=== PATIENT | male | born 1960 | race Caucasian/White ===

== ENCOUNTER 2016-11-18 09:39 | Emergency (ER) | payer BC ==
[~2016-11-18] VITALS: Ht 165.1 cm; Wt 83.3 kg
[2016-11-18 09:47] VITALS: TEMP 36.8; Ht 165.1 cm; Wt 83.3 kg
[2016-11-18 10:03] VITALS: O2SAT 97
[2016-11-18] MEDS ORDERED: RANI-316 PO (10:13)
[2016-11-18] MEDS ORDERED: ASPI-391 PO (10:13)
[2016-11-18] MEDS ORDERED: ACETAMINOPHEN 500 MG TAB PO STA (10:26)
[2016-11-18] MEDS ORDERED: CLONIDINE HCL 0.1 MG TAB PO ONE ×2 (10:30→11:30)
[2016-11-18 10:35] LABS: MEAN CELL VOLUME 92.3 fL (80-100); MEAN CORPUSCULAR HEMOGLOBIN 31.3 pg (25-34); MEAN CORPUSCULAR HGB CONC 33.9 g/dl (32-36); MEAN PLATELET VOLUME 9.6 fL (7.4-10.4); PLATELET COUNT 124 K/uL (130-400); RED BLOOD COUNT 5.31 M/uL (4.7-6.1); WHITE BLOOD COUNT 4.89 K/uL (4.8-10.8)
[2016-11-18 10:43] LABS: BLOOD UREA NITROGEN 22 mg/dl (7-18); BUN/CREATININE RATIO 19.8 (10-20); CALCIUM 8.8 mg/dl (8.5-10.1); CARBON DIOXIDE 25 mmol/L (21-32); CHLORIDE 105 mmol/L (98-107); GLUCOSE 115 mg/dl (70-99); POTASSIUM 4.2 mmol/L (3.5-5.1); SODIUM 137 mmol/L (136-145)
--- NOTE | 2016-11-18 11:22 | DIAGNOSTIC IMAGING REPORT ---
CHEST 2 VIEWS ROUTINE CLINICAL HISTORY: Atypical chest pain. Hypertension. COMPARISON STUDY: No previous studies for comparison. FINDINGS: The cardiac and mediastinal contours are normal. There is no evidence of focal pulmonary consolidation. There is no evidence of failure. No pleural effusions are visualized.[ There is minor left basilar atelectasis IMPRESSION: No active disease in the chest. Electronically signed by: Julian Sanchez M.D. 11/18/2016 11:20 AM Dictated Date/Time: 11/18/2016 11:20 AM
--- NOTE | 2016-11-18 11:27 | EMERGENCY ROOM VISIT NOTE ---
History Report prepared by Martin: Marlene Zavaleta Under the Supervision of: Dr. Freddy David M.D. First contact with patient: 10:20 Chief Complaint: HYPERTENSION Stated Complaint: HIGH BLOOD PRESSURE, HERNIA History of Present Illness The patient is a 56 year old male who presents to the Emergency Room with complaints of constant hypertension beginning [employer]. The patient noticed a right- sided inguinal hernia last week. Today he had a pre-op evaluation for his hernia and in the office his blood pressure was 240/133. He was sent to the ED for further evaluation. He is currently complaining of nausea and a headache located in the front of his head. He rates his pain as a 7/10 and states that he often has these headaches. He denies dizziness and lightheadedness. The patient states that prior to his hernia, he had not been to see a doctor in 15 years. states that years ago he was told that he had high blood pressure but it was never treated and he has not followed-up with anyone regarding this. Source of History: patient, spouse/significant other Onset: [employer] Position: other (global) Symptom Intensity: BP 240/133 Quality: other (hypertensive) Timing: constant Associated Symptoms: + headache, + nausea Review of Systems All systems have been listed, reviewed, and are negative other than those previously mentioned. Please see Additional Medical History Sheet. Past Medical & Surgical Medical Problems: (1) Inguinal hernia, right (2) Pilonidal cyst Surgical Problems: (1) History of surgical removal of pilonidal cyst Family History Cancer Heart disease Hypertension Social History Smoking Status: Current Some Day Smoker Alcohol Use: occasionally Marital Status: Housing Status: lives with significant other Occupation Status: employed Current/Historical Medications Scheduled Xcmogcy-Cxhcdwxswexkc-Nqwqtakp (Excedrin Extra Strength), 1 TAB PO PER PACKAGE DIRECTIO Clonidine Hcl (Catapres), 1 TAB PO BID Ranitidine HCl (Acid Teacher Of The Visually Impaired), 1 TAB PO DAILY Allergies Coded Allergies: Amoxicillin (Unverified Adverse Reaction, Intermediate, RASH, 11/18/16) Physical Exam Vital Signs Date Time Temp Pulse Resp B/P (MAP) Pulse Ox O2 Delivery O2 Flow Rate FiO2 11/18/16 13:21 73 11/18/16 13:18 75 18 138/95 95 Room Air 11/18/16 12:06 78 18 141/97 95 Room Air 11/18/16 11:58 70 18 150/108 95 Room Air 11/18/16 11:26 74 18 189/122 96 Room Air 11/18/16 10:49 70 18 180/122 95 Room Air 11/18/16 10:03 75 20 185/120 96 Room Air 11/18/16 10:03 97 Room Air 11/18/16 09:56 74 11/18/16 09:47 36.8 79 18 215/126 97 Room Air Physical Exam GENERAL: Patient awake, alert, oriented x 3. Patient follows commands. Patient does not appear toxic. Patient is adequately hydrated and well- nourished. SKIN: No erythema, pallor, cyanosis or rash HEENT: Normal head, pupils equal, reactive to light and accommodation. Oral cavity and posterior pharynx appear normal. Neck: Without adenopathy, no neck vein distention. LUNGS: Clear to auscultation. No wheezes, no rales, no rhonchi. HEART: No murmurs. No gallops. No rubs ABDOMEN: He has a right inguinal hernia. No rebound, no hepatomegaly or splenomegaly. EXTREMITIES: No signs of trauma. No pedal or pretibial edema. No calf or thigh tenderness. NEUROLOGIC: Cranial nerves II-XII within normal limits. No gross motor sensory function deficits. Medical Decision & Procedures ER Provider Diagnostic Interpretation: Radiology results as stated below per my review and radiologist interpretation: CHEST 2 VIEWS ROUTINE CLINICAL HISTORY: Atypical chest pain. Hypertension. COMPARISON STUDY: No previous studies for comparison. FINDINGS: The cardiac and mediastinal contours are normal. There is no evidence of focal pulmonary consolidation. There is no evidence of failure. No pleural effusions are visualized.[ There is minor left basilar atelectasis IMPRESSION: No active disease in the chest. Electronically signed by: Julian Sanchez M.D. 11/18/2016 11:20 AM Dictated Date/Time: 11/18/2016 11:20 AM Laboratory Results 11/18/16 10:01 11/18/16 10:01 Test 11/18/16 10:01 Red Blood Count 5.31 M/uL (4.7-6.1) Mean Corpuscular Volume 92.3 fL (80-100) Mean Corpuscular Hemoglobin 31.3 pg (25-34) Mean Corpuscular Hemoglobin Concent 33.9 g/dl (32-36) RDW Standard Deviation 42.3 fL (36.4-46.3) RDW Coefficient of Variation 12.6 % (11.5-14.5) Mean Platelet Volume 9.6 fL (7.4-10.4) Anion Gap 7.0 mmol/L (3-11) Est Creatinine Clear Calc Drug Dose 73.6 ml/min Estimated GFR () 85.9 Estimated GFR (Non- 74.1 BUN/Creatinine Ratio 19.8 (10-20) Calcium Level 8.8 mg/dl (8.5-10.1) Troponin I < 0.015 ng/ml (0-0.045) Laboratory results as stated above per my review. Medications Administered Medications (Trade) Dose Ordered Sig/Karoline Route Start Time Stop Time Status Last Admin Dose Admin Clonidine HCl (Catapres Tab) 0.1 mg NOW ONCE PO 11/18/16 10:30 11/18/16 10:31 DC 11/18/16 10:51 0.1 MG Acetaminophen (Tylenol Tab) 1,000 mg NOW STAT PO 11/18/16 10:26 11/18/16 10:28 DC 11/18/16 10:50 1,000 MG Clonidine HCl (Catapres Tab) 0.1 mg NOW ONCE PO 11/18/16 11:30 11/18/16 11:31 DC 11/18/16 11:36 0.1 MG ECG Indication: other (hypertension) Rate (beats per minute): 73 Rhythm: normal sinus Findings: no acute ischemic change, no ectopy ED Course 1020: Past medical records reviewed. The patient was evaluated in room A10. A complete history and physical examination was performed. 1026: Tylenol tab 1000 mg PO 1030: Clonidine HCl 0.1 mg PO 1124: I reassessed the patient and his blood pressure has improved. 1130: Clonidine HCl 0.1 mg PO 1304: I reassessed the patient at this time. He is feeling better and resting comfortably. I discussed the results and treatment plan with the patient. I answered all pertaining questions that he had. He expressed understanding and verbalized agreement. The patient will be discharged home. Medical Decision Differential diagnoses includes hypertension out of control, malignant hypertension, metabolic disorder, right inguinal hernia. Multiple labs, EKG and imaging were obtained. Please see above. The patient was given 0.1 mg of clonidine twice and his blood pressure came down nicely. The patient remained asymptomatic while here in the ED. The patient was felt safe to return home. He will be maintained on clonidine but will require follow -up by his family physician. Medication Reconcilliation Current Medication List: was personally reviewed by me Blood Pressure Screening Patient's blood pressure: Elevated blood pressure Blood pressure disposition: Referred to PCP Impression Primary Impression: Hypertensive urgency Scribe Attestation The scribe's documentation has been prepared under my direction and personally reviewed by me in its entirety. I confirm that the note above accurately reflects all work, treatment, procedures, and medical decision making performed by me. Departure Information Dispostion Home / Self-Care Prescriptions Clonidine Hcl (CATAPRES) 0.1 Mg Tab 1 TAB PO BID for 30 Days, #60 TAB 1 Refill Prov: Freddy David M.D. 11/18/16 Referrals Diogenes Ortez M.D. (PCP) Patient Instructions My [facility] Additional Instructions 1 clonidine twice a day. Follow-up with your family physician within the next 7 days. Return here immediately if you develop chest pain or shortness of breath.
[2016-11-18 13:18] VITALS: BP 138/95; O2SAT 95
[2016-11-18 13:21] VITALS: PULSE 73
[2016-11-18] MEDS ORDERED: CLON0.1T12 PO (13:23)
== END 2016-11-18 13:40 | disposition home or self-care (01) ==
LOC: C.EDB 09:41 → C.EDA 13:40
DX: I16.0 Hypertensive urgency (principal); K40.90 Unilateral inguinal hernia, without obstruction or gangrene, not specified as recurrent; F17.200 Nicotine dependence, unspecified, uncomplicated; Z82.49 Family history of ischemic heart disease and other diseases of the circulatory system

== ENCOUNTER → 2016-11-23 | Outpatient (CLI) | payer BC ==
[~2016-11-23] MED LIST: ASPI-391 PO; CLON0.1T12 PO; HYDR-5688 PO; RANI-316 PO
[2016-11-23 13:04] LABS: CHOLESTEROL/HDL RATIO 3.8
== END | disposition home or self-care (01) ==
LOC: C.LABPVFM 07:57
PROVIDERS: ATTEND Neuromusculoskeletal Medicine & OMM
DX: Z00.00 Encounter for general adult medical examination without abnormal findings (principal)

== ENCOUNTER → 2016-11-23 | Outpatient (CLI) | payer BC ==
--- NOTE | 2016-11-23 09:10 | DIAGNOSTIC IMAGING REPORT ---
ABDOMEN FOR HERNIA HISTORY: 56 years-old Male K40.90 Unilateral inguinal hernia, without obstruction or gangrene COMPARISON: None available TECHNIQUE: Multiple real-time static images of the right inguinal soft tissues/pelvic wall were obtained assessing grayscale appearance and color flow. FINDINGS: Within the right inguinal canal there is an ill-defined soft tissue focus measuring 3.7 x 1.9 cm extending into the region of the inguinal canal with areas that are isoechoic to fat and also fluid filled bowel communicates with the hernia. This area extends in and out of the inguinal canal with Valsalva and is reducible with compression. IMPRESSION: Reducible fat and bowel filled right inguinal hernia measures up to 3.7 cm. The above report was generated using voice recognition software. It may contain grammatical, syntax or spelling errors. Electronically signed by: Aries Bowser M.D. 11/23/2016 9:09 AM Dictated Date/Time: 11/23/2016 9:06 AM
== END | disposition home or self-care (01) ==
LOC: C.ULTR 08:39
PROVIDERS: ATTEND Nurse Practitioner
DX: K40.90 Unilateral inguinal hernia, without obstruction or gangrene, not specified as recurrent (principal)

== ENCOUNTER 2016-12-13 10:32 | Day surgery (SDC) | payer BC ==
[~2016-12-13] VITALS: Ht 170.2 cm; Wt 79.4 kg
[~2016-12-13 10:32] MED LIST changes: -HYDR-5688 PO; +LACTATED RINGER'S 1000ML 1,000 ML IV SCH
[2016-12-13 10:48] VITALS: BP 157/98; PULSE 79; TEMP 36.7; O2SAT 98; Ht 170.2 cm; Wt 79.4 kg
[2016-12-13] MEDS: CEFAZOLIN 2000 MG/60 ML D5W IV SCH ×2 (11:10→13:24)
[2016-12-13] MEDS ORDERED: ATROPINE SULFATE 0.1 MG/ML 5ML SYR IV PRN (11:45)
[2016-12-13] MEDS ORDERED: ONDANSETRON INJ 2 MG/ML 2 ML VIAL IV PRN ×2 (11:45→14:45)
[2016-12-13] MEDS ORDERED: EpHEDrine SULFATE INJ 50 MG/ML AMP IV PRN (11:45)
[2016-12-13] MEDS ORDERED: PHENYLEPHRINE 100MCG/ML 5ML SYR IV PRN (11:45)
[2016-12-13] MEDS ORDERED: ONDANSETRON INJ 2 MG/ML 2 ML VIAL ONE (12:01)
[2016-12-13] MEDS ORDERED: ROCURONIUM BROMIDE 10 MG/ML 5 ML VIAL ONE (12:01)
[2016-12-13] MEDS ORDERED: DEXAMETHASONE SOD INJ 4 MG/ML VIAL ONE (12:01)
[2016-12-13] MEDS ORDERED: GLYCOPYRROLATE INJ 0.2 MG/ML VIAL ONE (12:01)
[2016-12-13] MEDS ORDERED: FENTANYL CITRATE INJ 50 MCG/1 ML 2 ML VIAL ONE ×3 (12:01→13:52)
[2016-12-13] MEDS ORDERED: NEOSTIGMINE METHYLSULFATE 5 MG/5 ML SYR ONE (12:01)
[2016-12-13] MEDS ORDERED: PROPOFOL IV EMULSION 10 MG/ML 20 ML VIAL IV ONE (12:01)
[2016-12-13] MEDS ORDERED: LIDOCAINE HCL 2% 2 ML VIAL (20MG/ML) ONE (12:01)
[2016-12-13] MEDS ORDERED: MIDAZOLAM HCL 1 MG/ML 2ML VIAL ONE (12:01)
[2016-12-13] MEDS ORDERED: HYDR-5688 PO (13:10)
--- NOTE | 2016-12-13 13:11 | Discharge Instructions ---
Discharge Instructions Date of Service Dec 13, 2016. Visit Reason for Visit: Right Inguinal Hernia Discharge Discharge Diagnosis / Problem: Hernia repair Discharge Goals Goal(s): Decrease discomfort Activity Recommendations Activity Limitations: as noted below Lifting Limitations: no more than 10 pounds Shower/Bathe: no limitations Driving or Machine Use: in 1 week Anesthesia . Post Anesthesia Instructions: If you have had General Anesthesia or IV Sedation: * Do not drive today. * Resume driving when surgeon permits. * Do not make important decisions or sign legal documents today. * Call surgeon for: 1. Temperature elevations greater than 101 degrees F. 2. Uncontrollable pain. 3. Excessive bleeding. 4. Persistent nausea and vomiting. 5. Medication intolerance (nausea, vomiting or rash). * For nausea and vomiting use only clear liquids such as: tea, soda, bouillon until nausea subsides, then gradually increase diet as tolerated. * If you have any concerns or questions, call your surgeon's office. If physician is unavailable and it is an emergency, call 911 or go to the nearest emergency room. . Instructions / Follow-Up Instructions / Follow-Up Dr. Osman in 1-2 weeks, call [phone] if you have any questions or need to schedule Do not take additional Tylenol (Excedrin) while you are taking [place] Diet Recommendations Recommended Home Diet: no limitations Pending Studies Studies pending at discharge: no Medical Emergencies . Who to Call and When: Medical Emergencies: If at any time you feel your situation is an emergency, please call 911 immediately. . Non-Emergent Contact Non-Emergency issues call your: Surgeon Call Non-Emergent contact if: you have a fever, temperature is above 101.5, your pain is not controlled, wound has increased redness, you have any medication questions . . "Provider Documentation" section prepared by Joce Smith. .
--- NOTE | 2016-12-13 13:17 | History & Physical Bridge Note ---
H&P Re-Evaluation Bridge Note: I have examined the patient, reviewed the History & Physical and in the interval since the performance of the History & Physical I have noted the following changes of clinical significance: No changes noted
[2016-12-13] MEDS ORDERED: BUPIVACAINE/EPINEPHRINE 0.5% MPF 1:200,000 10 ML VIAL ONE (13:20)
[2016-12-13] MEDS ORDERED: LACTATED RINGER'S 1000ML 1,000 ML IV SCH (14:44)
[2016-12-13] MEDS ORDERED: HYDROCODONE/ACETAMOPHEN 5/325MG TAB PO PRN (14:45)
[2016-12-13] MEDS ORDERED: MoRPHine SULFATE 2 MG/ML CARP IV PRN (14:45)
[2016-12-13] MEDS: HYDROmorphone INJ 2 MG/ML SYR/VIAL IV PRN ×3 (14:57→15:07)
--- NOTE | 2016-12-13 15:00 | [facility] Operative Report ---
Operative Report Operative Date Dec 13, 2016. Pre-Operative Diagnosis Right Inguinal Hernia, Umbilical Hernia Post-Operative Diagnosis Right Inguinal Hernia, Umbilical Hernia Procedure(s) Performed Open Right Inguinal Hernia Repair with Mesh; Open Umbilical Hernia Repair; ilioinguinal neurolysis Surgeon Dr. Messi Osman Director Food Safety Surgeon(s) Joce Smith PA-C Estimated Blood Loss 15ML Findings indirect inguinal hernia; umbilical hernia. Specimens none per surgeon Dr. Messi Osman Anesthesia GET Complication(s) None Disposition Recovery Room / PACU Description of Procedure After informed consent was obtained the patient was taken to the operating suite placed in supine position. After successful intubation the right groin and umbilical area were shaved and sterilely prepped and draped in usual fashion. We began with a right inguinal incision with a 15 blade scalpel. This carried down through the soft tissues and electrocautery. The external oblique aponeurosis was skeletonized. An incision was made with a fresh blade and Metzenbaum scissors were used to extend this through the external ring as well as for several centimeters proximally. Once in the inguinal canal we were able to grab the cord and cord structures with a [place] and gently elevate them. I then used a blunt finger to take the cord off the pubic bone and a [place] drain was placed around the cord structures. There was no evidence of a direct hernia. We did evaluate the cord and cord structures and found a rather large hernia sac. We used traction /countertraction blunt dissection as well as small amounts electrocautery to take the hernia sac down to its neck. We were able to dunked it back into the abdominal cavity rather easily where it stayed on its own. There was also a small cord lipoma which we clamped at its neck divided and tied off. We then used a piece of polypropylene mesh as an onlay. It was secured distally to Rubens's ligament laterally along the shelving portion of Poupart ligament and medially along the midline musculature. The "arms" were wrapped around behind the cord and cord structures and secured to underlying muscle. We used 0 Ethibond for all the suturing. There was adequate hemostasis at this point. We thoroughly irrigated the wound. We injected some Marcaine around the edges of the mesh for postoperative analgesia. We then closed the external oblique aponeurosis with 2-0 Vicryl in a running fashion. The wound was irrigated and closed with 3 -0 Vicryl and 4-0 Monocryl. Some additional Marcaine was injected around the incision for postoperative analgesia. Attention then turned to the umbilical hernia. We made an infraumbilical curvilinear incision with a new blade. This was carried down through the soft tissue using electrocautery. A Dolores clamp was used to come around the superior aspect of the umbilicus. We then detached the umbilical stalk using electrocautery which revealed a small probably 1 cm defect. I used 0 Ethibond in interrupted [id number] fashion to primarily close the defect. Because of its small size I opted not to use mesh. We thoroughly irrigated the wound and reattached the umbilical stalk with 0 Vicryl. Soft tissue was closed using 3-0 Vicryl and skin was closed using 4-0 Monocryl. Marcaine was also injected around this incision for postoperative analgesia. Skin glue was used as a dressing for both incisions. The patient was awakened and transferred recovery in stable condition I attest to the content of the Intraoperative Record and any orders documented therein. Any exceptions are noted below.
--- NOTE | 2016-12-13 15:30 | Anesthesiology Progress Note ---
Anesthesia Post Op Note Date & Time Dec 13, 2016 at 15:29 Vital Signs Pain Intensity: 3 Vital Signs Past 12 Hours Date Time Temp Pulse Resp B/P (MAP) Pulse Ox O2 Delivery O2 Flow Rate FiO2 12/13/16 15:25 37.1 82 16 151/93 95 Room Air 12/13/16 15:15 94 16 157/97 92 Room Air 12/13/16 15:05 88 16 152/94 97 Mask 10 12/13/16 14:55 86 16 166/99 98 Mask 10 12/13/16 14:49 36.9 87 16 172/101 97 Mask 10 12/13/16 10:48 36.7 79 18 157/98 (117) 98 Notes Mental Status: alert / awake / arousable, participated in evaluation Pt Amnestic to Procedure: Yes Nausea / Vomiting: adequately controlled Pain: adequately controlled Airway Patency, RR, SpO2: stable & adequate BP & HR: stable & adequate Hydration State: stable & adequate Anesthetic Complications: no major complications apparent
[2016-12-13 15:33] VITALS: TEMP 36.8
[2016-12-13 16:30] VITALS: BP 120/72; PULSE 84; O2SAT 94
== END 2016-12-13 17:30 | disposition home or self-care (01) ==
LOC: C.ACU 10:32
PROVIDERS: ATTEND Surgery
DX: K40.90 Unilateral inguinal hernia, without obstruction or gangrene, not specified as recurrent (principal); K42.9 Umbilical hernia without obstruction or gangrene; K21.9 Gastro-esophageal reflux disease without esophagitis; I10 Essential (primary) hypertension; Z82.49 Family history of ischemic heart disease and other diseases of the circulatory system